=== PATIENT | female | born 1995 ===

== ENCOUNTER 2021-09-16 15:00 | Inpatient (IN) | payer OTHER ==
[~2021-09-16] VITALS: Ht 162.6 cm; Wt 79.4 kg
[2021-09-18] MEDS ORDERED: PRENATAL TABLE1 EAC1 PO (09:21)
== END 2021-09-21 16:19 | disposition home or self-care (01) | DRG 806 ==
LOC: LDR 09-18 07:27 → OB/GYN 09-18 07:27 → O/R 09-18 16:41 → OB/GYN 09-18 19:41 → O/R 09-18 19:42 → LDR 09-18 20:54 → OB/GYN 09-20 00:29
PROVIDERS: ADMIT Obstetrics & Gynecology; ATTEND Obstetrics & Gynecology
PROC: 0UQG7ZZ Repair Vagina, Via Natural or Artificial Opening (ICD-10-PCS; 2021-09-18)
PROC: 4A1HXCZ Monitoring of Products of Conception, Cardiac Rate, External Approach (ICD-10-PCS; 2021-09-18)
PROC: 10E0XZZ Delivery of Products of Conception, External Approach (ICD-10-PCS; principal; 2021-09-18 15:15)
PROC: 30233N1 Transfusion of Nonautologous Red Blood Cells into Peripheral Vein, Percutaneous Approach (ICD-10-PCS; 2021-09-19)
DX: O71.4 Obstetric high vaginal laceration alone (principal); O72.1 Other immediate postpartum hemorrhage; Z37.0 Single live birth; Z3A.38 38 weeks gestation of pregnancy; Z20.822 Contact with and (suspected) exposure to COVID-19